=== PATIENT | male | born 1995 | race African-American/Black ===

== ENCOUNTER 2021-01-25 17:30 | Emergency (ER) | payer SELFPAY ==
[2021-01-25] MEDS ORDERED: Sodium Chloride 0.9% 0 ML ONE (18:27)
[2021-01-25] MEDS ORDERED: Ondansetron PF 4 MG/2 ML Vial ONE ×2 (18:27→18:32)
[2021-01-25] MEDS ORDERED: Sodium Chloride 0.9% 1,000 ML ONE (18:32)
== END 2021-01-25 19:16 | disposition home or self-care (01) ==
LOC: MADERS 17:30
DX: E86.0 Dehydration (principal); R11.2 Nausea with vomiting, unspecified; F17.210 Nicotine dependence, cigarettes, uncomplicated
CPT/HCPCS: 96374; J2405; J7050